=== PATIENT | male | born 1960 | race Caucasian/White ===

== ENCOUNTER 2023-01-09 04:14 | Day surgery (SDC) | payer OTHER ==
[~2023-01-09] VITALS: Ht 180.3 cm; Wt 87.1 kg
[2023-01-09] VITALS (271 sets, daily range): BP systolic 81–155; BP diastolic 53–104
[2023-01-09 08:37] LABS: ALBUMIN 4.3 g/dL (3.2-5.0); ALKALINE PHOSPHATASE 85 u/l (38-126); ANION GAP 11 (6-22 (CALC)); BILIRUBIN, TOTAL 0.5 mg/dL (0.2-1.3); BUN 25 mg/dL (8-23); BUN/CREATININE RATIO 26 (12-20 (CALC)); CARBON DIOXIDE 28 mmol/l (22-30); CHLORIDE 105 mmol/l (95-108); GFR FOR AFR.AMER. > 60 ML/MIN (>=60 (CALC)); GFR OTHER RACES > 60 ML/MIN (>=60 (CALC)); POTASSIUM 4.4 mmol/l (3.5-5.1); SGOT/AST 29 u/l (19-48); SODIUM 140 mmol/l (137-146); TOTAL PROTEIN 7.1 g/dL (6.3-8.2)
[2023-01-09 08:48] LABS: BASO% 0.9 % (0-3); EOS% 2.8 % (0-8); HEMATOCRIT 44.4 % (39.0-50.0); HEMOGLOBIN 14.3 g/dl (14.0-18.0); IMMATURE GRANULOCYTES 0.2 % (0.0-5.0); MEAN CELL VOLUME 101.1 fL CALC (80.0-100.0); MEAN CORPUSCULAR HGB 32.6 pG CALC (26.0-32.0); MEAN CORPUSCULAR HGB CONC 32.2 g/dL CAL (32.0-36.0); MONO% 9.3 % (2-13); NEUT# 3.63 thou/uL (1.82-7.42); NEUT% 67.8 % (42-76); RED BLOOD COUNT 4.39 mill/uL (4.70-6.10); RED CELL DISTRI WIDTH 13.9 % (11.5-15.5)
[2023-01-09] MEDS ORDERED: ATORVASTATIN CA20 MG PO (08:50)
[2023-01-09] MEDS ORDERED: TRAZODONE50 MG PO (08:51)
[2023-01-09] MEDS ORDERED: LOPRESSOR25 M1 PO (08:51)
[2023-01-09] MEDS ORDERED: ASPIRIN 81 LOW81 MG PO (08:51)
[2023-01-09] MEDS ORDERED: NALTREXONE50 MG PO (13:44)
[2023-01-09] MEDS ORDERED: CLONIDINE0.1 MG PO (13:44)
[2023-01-09] MEDS ORDERED: KLONOPIN2 MG PO (13:45)
[2023-01-10 03:25] VITALS: BP 151/106
[2023-01-10 04:54] LABS: ALKALINE PHOSPHATASE 72 u/l (38-126); ANION GAP 12 (6-22 (CALC)); BILIRUBIN, TOTAL 0.6 mg/dL (0.2-1.3); BUN 23 mg/dL (8-23); BUN/CREATININE RATIO 20 (12-20 (CALC)); CARBON DIOXIDE 26 mmol/l (22-30); CHLORIDE 107 mmol/l (95-108); CREATININE 1.2 mg/dL (0.7-1.3); GFR FOR AFR.AMER. > 60 ML/MIN (>=60 (CALC)); GFR OTHER RACES > 60 ML/MIN (>=60 (CALC)); MAGNESIUM 2.5 mg/dL (1.6-2.3); POTASSIUM 4.8 mmol/l (3.5-5.1); SGOT/AST 45 u/l (19-48); SODIUM 140 mmol/l (137-146); TOTAL PROTEIN 6.9 g/dL (6.3-8.2)
[2023-01-10 07:37] VITALS: BP 143/70
[2023-01-10 08:06] VITALS: BP 143/70
[2023-01-10 16:06] VITALS: BP 143/70
[2023-01-10 19:16] VITALS: BP 127/61
[2023-01-11 03:59] VITALS: BP 178/98
[2023-01-11 05:22] VITALS: BP 158/94
[2023-01-11 06:00] VITALS: BP 170/100
[2023-01-11 06:19] VITALS: BP 172/91
[2023-01-11 06:23] VITALS: BP 172/91
== END 2023-01-11 12:00 | disposition home or self-care (01) | DRG 897 ==
LOC: ANR 04:14 → MS2 04:14 → ANR 10:00 → MS2 18:04 → ANR 01-11 12:00
PROVIDERS: ATTEND Anesthesiology Critical Care Medicine
DX: F11.20 Opioid dependence, uncomplicated (principal)
CPT/HCPCS: J0131; J2060; J2354; J3475